=== PATIENT | female | born 1990 | race Native Hawaiian/Other Pacific Islander ===

== ENCOUNTER 2018-06-29 05:48 | Emergency (ER) | payer OTHER ==
[~2018-06-29] VITALS: Ht 165.1 cm; Wt 100.2 kg
[2018-06-29 06:04] VITALS: TEMP 98.3
[2018-06-29 06:44] LABS: PLATELET COUNT 249 K/uL (152-353)
[2018-06-29 09:48] VITALS: BP 132/78
== END 2018-06-29 09:50 | disposition home or self-care (01) ==
LOC: ED 05:48
PROVIDERS: Internal Medicine
DX: K80.20 Calculus of gallbladder without cholecystitis without obstruction (principal); N20.0 Calculus of kidney; K57.92 Diverticulitis of intestine, part unspecified, without perforation or abscess without bleeding
CPT/HCPCS: 36415; 80053; 82150; 83690; 85027; 96374; 96375; 99284; J1885; J2405; Q9963

== ENCOUNTER 2018-09-06 07:47 | Day surgery (SDC) | payer OTHER ==
[~2018-09-06] VITALS: Ht 30.5 cm; Wt 0.5 kg
[2018-09-06 08:42] LABS: PLATELET COUNT 237 K/uL (152-353); POTASSIUM 4.2 mmol/L (3.6-5.2)
== END 2018-09-06 13:20 | disposition home or self-care (01) ==
LOC: OR 07:47
PROVIDERS: Student in an Organized Health Care Education/Training Program
PROC: 0FT44ZZ Resection of Gallbladder, Percutaneous Endoscopic Approach (ICD-10-PCS; principal; 2018-09-06)
DX: K80.10 Calculus of gallbladder with chronic cholecystitis without obstruction (principal)
CPT/HCPCS: 80053; 85027; J0132; J0330; J0690; J1100; J1170; J1885; J2001; J2250; J2405; J2704; J2710; J3010; J3490

== ENCOUNTER 2022-08-22 19:05 | Emergency (ER) | payer OTHER ==
[~2022-08-22] VITALS: Ht 165.1 cm; Wt 93.0 kg
[2022-08-22 19:16] VITALS: BP 127/79; TEMP 98.9
[2022-08-22] MEDS ORDERED: TAMIFLU75 MG PO (19:46)
== END 2022-08-22 20:00 | disposition home or self-care (01) ==
LOC: ED 19:05
DX: J10.1 Influenza due to other identified influenza virus with other respiratory manifestations (principal); F17.210 Nicotine dependence, cigarettes, uncomplicated
CPT/HCPCS: 87502; 99283

== ENCOUNTER 2023-03-16 22:49 | Emergency (ER) | payer OTHER ==
[~2023-03-16] VITALS: Ht 165.1 cm; Wt 96.2 kg
[~2023-03-16 22:49] MED LIST: TAMIFLU75 MG PO
[2023-03-17 01:55] VITALS: BP 120/81; TEMP 98.8
== END 2023-03-17 01:55 | disposition home or self-care (01) ==
LOC: ED 22:49
PROC: 0HQKXZZ Repair Right Lower Leg Skin, External Approach (ICD-10-PCS; principal; 2023-03-17)
DX: S81.811A Laceration without foreign body, right lower leg, initial encounter (principal); W18.2XXA Fall in (into) shower or empty bathtub, initial encounter; Z23 Encounter for immunization
CPT/HCPCS: 90471; 90715; 96372; 99283; J0690; J1885

== ENCOUNTER 2023-03-19 16:56 | Emergency (ER) | payer OTHER ==
[~2023-03-19] VITALS: Ht 165.1 cm; Wt 96.2 kg
[2023-03-19 17:02] VITALS: BP 137/86; TEMP 98.7
== END 2023-03-19 17:52 | disposition home or self-care (01) ==
LOC: ED 16:56
DX: Z51.89 Encounter for other specified aftercare (principal)
CPT/HCPCS: 99282

== ENCOUNTER 2023-03-26 17:13 | Emergency (ER) | payer OTHER ==
[~2023-03-26] VITALS: Ht 165.1 cm; Wt 96.2 kg
[2023-03-26 17:24] VITALS: TEMP 98
[2023-03-26 18:08] VITALS: BP 140/82
== END 2023-03-26 18:09 | disposition home or self-care (01) ==
LOC: ED 17:13
DX: Z48.02 Encounter for removal of sutures (principal)
CPT/HCPCS: 99281

== ENCOUNTER 2023-04-12 12:16 | Emergency (ER) | payer OTHER ==
[~2023-04-12] VITALS: Ht 165.1 cm; Wt 96.2 kg
[2023-04-12 13:55] VITALS: BP 138/95; TEMP 98.2
== END 2023-04-12 13:55 | disposition home or self-care (01) ==
LOC: ED 12:16
DX: H53.8 Other visual disturbances (principal); S05.02XA Injury of conjunctiva and corneal abrasion without foreign body, left eye, initial encounter; T14.90XA Injury, unspecified, initial encounter
CPT/HCPCS: 99283